=== PATIENT | female | born 1955 | race African-American/Black ===

== ENCOUNTER 2019-02-11 11:06 | Outpatient (CLI) | payer MEDICARE, MEDICAID ==
[~2019-02-11] VITALS: Ht 167.6 cm; Wt 78.6 kg
[2019-02-11 13:18] VITALS: BP 80/40; Ht 167.6 cm; Wt 78.6 kg
--- NOTE | 2019-02-11 14:58 | NUR ---
PT RESTING COMFORTABLY AT THIS TIME, RESPIRATIONS EVEN UNLABORED, NAD NOTED, WILL CONTINUE TO MONITOR.
--- NOTE | 2019-02-11 15:24 | NUR ---
PT ROUNDED ON AT THIS TIME, PT DENIES ANY COMPLAINTS AT THIS TIME. WILL CONTINUE TO MONITOR.
--- NOTE | 2019-02-11 16:00 | NUR ---
PT REPOSITIONED AND TURNED AT THIS TIME.
--- NOTE | 2019-02-11 16:41 | NUR ---
PT BS CHECKED AT THIS TIME, 100. PT STATES NO COMPLAINTS AT THIS TIME.
--- NOTE | 2019-02-11 17:32 | NUR ---
PT DIAPER CHANGED AT THIS TIME, SCANT AMOUNTS OF STOOL NOTED.
--- NOTE | 2019-02-11 20:13 | NUR ---
1814 IV REMOVED AND DRESSING APPLIED. 1829 TOTAL LIFT TO W/C [place] IN PLACE. 1834 CALLED DISPATCH FOR TRANSFER TO [facility]. 1900 VAN HERE TO GET PT. 2015 DENTURES LEFT IN BATH ROOM IN A CUP. [facility] CALLED AND FAMILY WITH PICK THEM UP TOMORROW.
== END 2019-02-11 19:00 ==
LOC: D.OPS 11:06
PROVIDERS: ATTEND Family Medicine
DX: D64.9 Anemia, unspecified (principal)